=== PATIENT | male | born 1985 | race Caucasian/White ===

== ENCOUNTER 2024-01-28 11:09 | Emergency (ER) | payer BC ==
[2024-01-28 11:40] VITALS: O2SAT 100
[2024-01-28 12:00] LABS: BASOPHILS % (AUTO) 0.3 %; EOSINOPHILS # (AUTO) 0.1 10^3/uL (0.0-0.7); HCT - HEMATOCRIT 45.6 % (42.0-52.0); HGB - HEMOGLOBIN 15.2 g/dL (14.0-18.0); LYMPHOCYTES # (AUTO) 0.6 10^3/uL (1.5-3.5); LYMPHOCYTES % (AUTO) 20.7 %; MEAN CORPUSCULAR HEMOGLOBIN 32.1 pg (27.0-31.0); MEAN CORPUSCULAR HGB CONC 33.3 g/dL (32.0-36.0); MEAN CORPUSCULAR VOLUME 96.4 fL (80.0-94.0); MEAN PLATELET VOLUME 10.3 fL (7.4-11.4); MONOCYTES # (AUTO) 0.3 10^3/uL (0.0-1.0); MONOCYTES % (AUTO) 10.8 %; NEUTROPHILS % (AUTO) 66.2 %; PLT - PLATELET COUNT 201 10^3/uL (130-450); RED BLOOD COUNT 4.73 10^6/uL (4.70-6.10); RED CELL DISTRIBUTION WIDTH 12.4 % (12.0-15.0); WHITE BLOOD COUNT 3.1 x10^3/uL (4.8-10.8)
[2024-01-28 12:22] LABS: ALBUMIN 4.4 g/dL (3.2-5.5); ALBUMIN/GLOBULIN RATIO 1.8 (1.0-2.2); BILIRUBIN,TOTAL 0.5 mg/dL (0.2-1.0); CALCIUM 9.1 mg/dL (8.5-10.3); CREATININE 0.8 mg/dL (0.6-1.3); POTASSIUM 3.4 mmol/L (3.5-4.5); TOTAL PROTEIN 6.9 g/dL (6.4-8.9)
--- NOTE | 2024-01-28 13:17 | ED Physician Documentation ---
History of Present Illness - Stated complaint Stated Complaint: N/V/D, SWEATY - Chief complaint Chief Complaint: Abd Pain - History obtained from History obtained from: Patient - History of Present Illness Pain level max: 3 Pain level now: 3 - Additonal information Additional information: Patient is a 38-year-old male who presents to the emergency department stating that about 3 days ago he had 1 episode of vomiting. Since that time he has had diarrhea. 8-10 times per day. Mostly watery, but is now starting to decrease in frequency. Occasional abdominal cramping. No blood in the stool. No fevers but has felt like he has had chills. No recent travel but someone stayed with him who had recently been to [place] and had similar symptoms. He states that person is now better. No recent antibiotics or travel. No history of GI issues. Nothing makes it better or worse. Review of Systems Constitutional: denies: Fever, Chills Respiratory: denies: Cough GI: denies: Hematemesis, Bloody / black stool : denies: Dysuria, Frequency, Hesitancy PD PAST MEDICAL HISTORY - Past Medical History Past Medical History: Yes Cardiovascular: None Respiratory: Asthma Neuro: None Endocrine/Autoimmune: None GI: None : None HEENT: None Psych: None Musculoskeletal: None Derm: None - Past Surgical History Past Surgical History: Yes - Present Medications Home Medications: Ambulatory Orders Medication Instructions Recorded Confirmed Albuterol Sulf [Ventolin Hfa 2 puffs IH DAILY PRN 01/28/24 01/28/24 Inhaler] - Allergies Allergies/Adverse Reactions: Allergies Allergy/AdvReac Type Severity Reaction Status Date / Time No Known Drug Allergies Allergy Verified 01/28/24 11:37 - Social History Does the pt smoke?: No Smoking Status: Never smoker Does the pt drink ETOH?: Yes ETOH Use: Wine - Immunizations Immunizations are current?: Yes PD ED PE NORMAL - Vitals Vital signs reviewed: Yes - General General: Alert and oriented X 3, No acute distress - HEENT HEENT: Moist mucous membranes - Cardiac Cardiac: RRR - Respiratory Respiratory: No respiratory distress, Clear bilaterally - Abdomen Abdomen: Soft, Non tender, Non distended - Back Back: No CVA TTP - Derm Derm: Warm and dry - Neuro Neuro: Alert and oriented X 3 - Psych Psych: Normal mood, Normal affect Results - Vitals Vitals: Vital Signs - 24 hr 01/28/24 01/28/24 11:31 14:15 Temperature 36.8 C 36.8 C Heart Rate 83 57 L Respiratory 16 18 Rate Blood Pressure 119/82 H 126/85 H O2 Saturation 100 100 Oxygen O2 Source Room air - Labs Labs: Laboratory Tests 01/28/24 01/28/24 11:54 11:54 WBC 3.1 L RBC 4.73 Hgb 15.2 Hct 45.6 MCV 96.4 H MCH 32.1 H MCHC 33.3 RDW 12.4 Plt Count 201 MPV 10.3 Neut # (Auto) 2.0 Lymph # (Auto) 0.6 L [place] # (Auto) 0.3 Eos # (Auto) 0.1 Baso # (Auto) 0.0 Absolute Nucleated RBC 0.00 Nucleated RBC % 0.0 Sodium 133 L Potassium 3.4 L Chloride 97 L Carbon Dioxide 27 Anion Gap 9.0 BUN 12 Creatinine 0.8 Estimated GFR (MDRD) 107 Glucose 92 Calcium 9.1 Total Bilirubin 0.5 AST 39 ALT 25 Alkaline Phosphatase 34 L Total Protein 6.9 Albumin 4.4 Globulin 2.5 Albumin/Globulin Ratio 1.8 Lipase 20 PD Medical Decision Making - ED course Complexity details: reviewed results, re-evaluated patient, considered differential, d/w patient ED course: 38-year-old male with nausea and vomiting x 1, 3 days ago, followed by diarrhea. Stool samples were sent here for culture and C. difficile testing. He is well- appearing, nontoxic. Afebrile. Tolerating p.o. without difficulty. Feels better after IV fluids. No fevers. No blood in the stool. No indication for antibiotics at this point. We will continue supportive care and contact him if his C. difficile or stool cultures are positive. Abdomen is soft, nontender nondistended on serial exam. Patient counseled regarding signs and symptoms for which I believe and urgent re-evaluation would be necessary. Patient with good understanding of and agreement to plan and is comfortable going home at this time This document was made in part using voice recognition software. While efforts are made to proofread this document, sound alike and grammatical errors may occur. Departure - Departure Disposition: 01 Home, Self Care Clinical Impression: Diarrhea Qualifiers: Diarrhea type: unspecified type Qualified Code(s): R19.7 - Diarrhea, unspecified Condition: Good Instructions: ED Diarrhea Viral Follow-Up: your,doctor in 1 week if not better [Other] Comments: We did send off stool studies today, if these need treatment, we will contact y ou. Please make sure you are drinking plenty of fluids at home. Please follow- up with your doctor as needed for further care. This is likely a viral illness that should resolve on its own. Forms: PCP List
[2024-01-28] MEDS: SODIUM CHLORIDE 0.9% 2,000 ML IV STA (13:36)
[2024-01-28 15:04] VITALS: BP 123/77
== END 2024-01-28 14:58 | disposition home or self-care (01) ==
LOC: ED 11:09
DX: R19.7 Diarrhea, unspecified (principal); J45.909 Unspecified asthma, uncomplicated
CPT/HCPCS: 36415; 80053; 83690; 85025; 87045; 87046; 87427; 87493; 99283